=== PATIENT | male | born 1960 | race Caucasian/White ===

== ENCOUNTER → 2017-01-05 | Outpatient (CLI) | payer BC ==
--- NOTE | 2017-01-05 10:15 | MRI ---
HISTORY: Low back pain, disk degeneration Study: MRI lumbar spine without contrast Comparison: None Technique: Multiplanar multi-sequence MRI of the lumbar spine was obtained. Sagittal T1, sagittal T 2, and stir weighted images, axial T1, and axial T2 images were obtained. Findings: The lumbar spine demonstrates normal alignment with the expected signal characteristics of the bone marrow. With the exception of some degenerative endplate changes at L5-S1. The conus of the cord ter minates normally. T12 -- L1: No evidence for compressive disc disease. The neural foramina are patent. The joints are normal. No evidence for compressive disc disease. L1 -- L2: No evidence for compressive disc disease. The neural foramina are patent. The joints are n ormal. L2 -- L3: No evidence for compressive disc disease. The neural foramina are patent. Bilateral facet arthropathy is present. L3 -- L4: Broad-based disk bulging effaces the thecal sac and contributes along with bilateral facet arthropathy to moderate lateral recess narrowing bilaterally left worse than right. L4 -- L5: Concentric disk bulging contributes along with pedicular shortening and facet arthropathy to lateral recess and foraminal narrowing bilaterally worse than at the levels above. L5 -- S1: There is disc degeneration with broad-based disc bulging which causes minimal thecal sac e ffacement but contributes along with spondylitic change and facet arthropathy to severe lateral rece ss and foraminal narrowing bilaterally left worse than right. IMPRESSION: As above Reported By:
== END ==
LOC: RAD 09:11
PROVIDERS: ATTEND Internal Medicine
DX: M51.36 Other intervertebral disc degeneration, lumbar region (principal)
CPT/HCPCS: 72148